=== PATIENT | female | born 1980 | race Caucasian/White ===

== ENCOUNTER 2019-06-09 12:30 | Emergency (ER) | payer BC ==
[2019-06-09 13:29] VITALS: BP 124/77
--- NOTE | 2019-06-09 13:43 | UC ---
Respiratory Complaint HPI - HPI Summary HPI Summary: 3 days ago started w/ sore throat , pain w/ swallowing. pt also states the whole right side of her face, jaw, and ear hurt. Pt states she has a chronic cough. She thought it may be related to seasonal allergies and tried zyrtec, it did not help. - History of Current Complaint Chief Complaint: UCGeneralIllness Stated Complaint: RT SIDE FACIAL PAIN,ST Time Seen by Provider: 06/09/19 13:28 Hx Obtained From: Patient Hx Last Menstrual Period: 05/30/19 Pain Intensity: 8 Aggravating Factors: Other - touching r jaw - Allergies/Home Medications Allergies/Adverse Reactions: Allergies Allergy/AdvReac Type Severity Reaction Status Date / Time No Known Allergies Allergy Verified 06/09/19 13:29 Home Medications: Home Medications Cetirizine HCl [Zyrtec] 10 mg PO DAILY 06/09/19 [History Confirmed 06/09/19] PMH/Surg Hx/FS Hx/Imm Hx - Additional Past Medical History Additional PMH: no chronic conditions. Previously Healthy: Yes - Surgical History Surgical History: None - Family History Known Family History: Positive: Non-Contributory - Social History Alcohol Use: Occasionally Substance Use Type: None Smoking Status (MU): Never Smoked Tobacco Review of Systems All Other Systems Reviewed And Are Negative: Yes Constitutional: Negative: Fever, Chills, Fatigue ENT: Positive: Sore Throat, Ear Ache Respiratory: Positive: Negative Cardiovascular: Positive: Negative Neurological: Negative: Headache Physical Exam Triage Information Reviewed: Yes Appearance: Well-Appearing Vital Signs: Initial Vital Signs Temp 98.4 F 06/09/19 13:26 Pulse 88 06/09/19 13:26 Resp 16 06/09/19 13:26 BP 124/77 06/09/19 13:26 Pulse Ox 99 06/09/19 13:26 Vital Signs Reviewed: Yes Eyes: Positive: Conjunctiva Clear ENT: Positive: Pharynx normal, TMs normal - left, Uvula midline, Other - R TM has purulent material on other side half way and somewhat bulging, dull. Negative: Pharyngeal erythema, Tonsillar exudate Dental: Positive: Cervical Lymphadenopathy - R tender, large Neck: Positive: Supple. Negative: Nuchal Rigidity Respiratory Exam: Normal Cardiovascular Exam: Normal Neurological: Positive: Alert Respiratory Course/Dx - Course Course Of Treatment: Sore throat w/ R ear pain and R cervical lymphaenopathy, acute. Unclear etiology as Rapid strep neg. But there was some purulent material forming at R ear suggesting the beginning of OM so will tx. vitals good have asked her to f/ u w/ pcp to ensure lymphadeonpathy has resolved. - Differential Dx/Diagnosis Differential Diagnosis/HQI/PQRI: Bronchitis, Laryngitis, Lower Resp Infection, Other Provider Diagnosis: Pharyngitis, Otitis media, Lymphadenopathy Discharge ED - Sign-Out/Discharge Documenting (check all that apply): Patient Departure All imaging exams completed and their final reports reviewed: No Studies - Discharge Plan Condition: Good Disposition: HOME Prescriptions: Amoxicillin/Clavulanate TAB* [Augmentin TAB 875*] 875 mg PO BID 10 Days #20 tab Forms: *Work Release Referrals: Martina Gross NP [Primary Care Provider] - Additional Instructions: If no improvement of R lymph node under jaw please see your primary lawn care professional w /in 2-3 days. If you develop fever please see them sooner. - Billing Disposition and Condition Condition: GOOD Disposition: Home
== END 2019-06-09 14:12 | disposition home or self-care (01) ==
LOC: UCCORT 12:30
DX: J02.9 Acute pharyngitis, unspecified (principal); H66.91 Otitis media, unspecified, right ear; R59.1 Generalized enlarged lymph nodes; R05 Cough
CPT/HCPCS: 87651; 99212; G0463

== ENCOUNTER 2019-07-14 17:10 | Emergency (ER) | payer BC ==
[2019-07-14 17:55] VITALS: BP 130/83
[2019-07-14] MEDS ORDERED: predniSONE TAB* 20 MG PO ONE (18:08)
--- NOTE | 2019-07-14 18:15 | UC ---
Skin Complaint HPI - HPI Summary HPI Summary: C/O painful red nodules on the arms > legs. Just started today. Has had chills but no fevers. No URI symptoms. - History of Current Complaint Chief Complaint: UCRash Stated Complaint: RASH Hx Obtained From: Patient Hx Last Menstrual Period: 07/14/19 ?: No Onset/Duration: Sudden Onset, Lasting Days - 1, Worse Since - onset Onset Severity: Moderate Current Severity: Severe Pain Intensity: 9 Location: Discrete - on the arms and legs Character: Swelling, Pain, Redness Aggravating Factor(s): Touch Alleviating Factor(s): Nothing Associated Signs & Symptoms: Positive: Chills, Rash, Tenderness. Negative: Diaphoresis, Fever, Lightheadedness, Syncope, Drainage, Bruising - Allergy/Home Medications Allergies/Adverse Reactions: Allergies Allergy/AdvReac Type Severity Reaction Status Date / Time No Known Allergies Allergy Verified 07/14/19 17:55 Home Medications: Home Medications Acetaminophen [Tylenol Extra Strength] 1,000 mg Q4H PRN 07/14/19 [History Confirmed 07/14/19] diPHENhydraMINE PO* [Benadryl PO 25 MG TAB*] 50 mg PO Q6H PRN 07/14/19 [History Confirmed 07/14/19] PMH/Surg Hx/FS Hx/Imm Hx Previously Healthy: Yes - Surgical History Surgical History: None - Family History Known Family History: Positive: Cardiac Disease, Hypertension, Diabetes, Non- Contributory - Social History Occupation: Employed Full-time Lives: With Family Alcohol Use: Rare Substance Use Type: None Smoking Status (MU): Never Smoked Tobacco Review of Systems All Other Systems Reviewed And Are Negative: Yes Constitutional: Positive: Chills Skin: Positive: Rash Physical Exam Triage Information Reviewed: Yes Appearance: Well-Appearing, Pain Distress - mild, Obese Vital Signs: Initial Vital Signs Temp 99.7 F 07/14/19 17:48 Pulse 101 07/14/19 17:48 Resp 15 07/14/19 17:48 BP 130/83 07/14/19 17:48 Pulse Ox 100 07/14/19 17:48 Vital Signs Reviewed: Yes Eyes: Positive: Conjunctiva Clear Neck exam: Normal Respiratory Exam: Normal Cardiovascular Exam: Normal Musculoskeletal Exam: Normal Neurological Exam: Normal Psychological Exam: Normal Skin: Positive: Rashes - Tender erythematous cutaneous nodules on the arms and legs. Course/Dx - Differential Diagnoses - Skin Complaint Differential Diagnoses: Erythema Nodosum, Erythema Multiforme, Impetigo, Lymphadenitis, Lymphangitis - Diagnoses Provider Diagnosis: Erythema nodosum Discharge ED - Sign-Out/Discharge Documenting (check all that apply): Patient Departure All imaging exams completed and their final reports reviewed: No Studies - Discharge Plan Condition: Stable Disposition: HOME Prescriptions: predniSONE TAB* [Deltasone 20 MG TAB*] 60 mg PO DAILY #18 tab Patient Education Materials: Prednisone (By mouth) Referrals: Martina Gross NP [Primary Care Provider] - 3 Days Additional Instructions: Erythema nodosum is a form of panniculitis (inflammation of the fat layer beneath the skin) that produces tender red or tina bumps (nodules) under the skin, most often over the shins but occasionally on the arms and other areas. EpiSensorMED SINUS RINSE: CHECK OUT AT In Flow Saline nasal wash helps with mucous, allergies and congestion. It can be used up to twice a day or only as needed. Use lukewarm tap water. It does not have to be sterilized or distilled water. Do 1/3 on each side and snort out of both nostrils. Repeat the process with 1/6 of the bottle on each side with snorting in between to finish the solution in the bottle - Billing Disposition and Condition Condition: STABLE Disposition: Home
== END 2019-07-14 18:23 | disposition home or self-care (01) ==
LOC: UCCORT 17:10
DX: L52 Erythema nodosum (principal)
CPT/HCPCS: 99212; G0463; J7512